=== PATIENT | female | born 1945 | race Caucasian/White ===

== ENCOUNTER → 2016-09-25 | Outpatient (CLI) | payer OTHER, BC ==
[~2016-09-25] MED LIST: ENABLEX15 MG PO; FLOVENT DI100 MCG/Ac IH; PROAIR HFA0.09 MG/Ac IH; PROPRANOLOL60 MG PO; SYN1 PO; TRIAMTERENE/H37.5 MG PO; VITAMIN D PO; [UNRECOGNIZED DRUG - OTHER] PO
== END | disposition home or self-care (01) ==
LOC: RD 13:55
DX: M79.644 Pain in right finger(s) (principal); R29.898 Other symptoms and signs involving the musculoskeletal system

== ENCOUNTER → 2016-10-31 | Outpatient (CLI) | payer OTHER, BC | END | disposition home or self-care (01) | LOC: CT 09:47 | PROC: BW24ZZZ Computerized Tomography (CT Scan) of Chest and Abdomen (ICD-10-PCS; principal; 2016-10-31) | PROC: BW211ZZ Computerized Tomography (CT Scan) of Abdomen and Pelvis using Low Osmolar Contrast (ICD-10-PCS; 2016-10-31) | DX: C64.9 Malignant neoplasm of unspecified kidney, except renal pelvis (principal); N31.8 Other neuromuscular dysfunction of bladder ==

== ENCOUNTER → 2017-08-26 | Outpatient (CLI) | payer OTHER, BC | END | disposition home or self-care (01) | LOC: RD 11:54 | DX: M25.551 Pain in right hip (principal) ==

== ENCOUNTER → 2017-09-09 | Outpatient (CLI) | payer OTHER, BC ==
[2017-09-09 14:36] LABS: UA SPECIFIC GRAVITY <=1.005 (1.005-1.035); urine erythrocyte NEGATIVE (NEGATIVE)
[2017-09-09 14:39] LABS: BASOPHIL % 0.4 % (0-2); PLATELET COUNT 176 x10^3mcL (130-400)
[2017-09-09 14:50] LABS: ALBUMIN 3.5 g/dL (3.4-5.0); BILIRUBIN TOTAL 0.65 mg/dL (0.20-1.00); CALCIUM 9.4 mg/dL (8.5-10.1); CARBON DIOXIDE 23.2 mmol/L (21-32); CREATININE SERUM 1.1 mg/dL (0.6-1.0); POTASSIUM SERUM 4.1 mmol/L (3.5-5.1); microscopic required? YES
[2017-09-09 14:51] LABS: RED CELL DISTRIBUTION WIDTH 14.7 % (11.5-14.5)
== END | disposition home or self-care (01) ==
LOC: LB 14:08
DX: C64.9 Malignant neoplasm of unspecified kidney, except renal pelvis (principal); N31.8 Other neuromuscular dysfunction of bladder

== ENCOUNTER → 2017-09-16 | Outpatient (CLI) | payer OTHER, BC | END | disposition home or self-care (01) | LOC: CT 08:37 | PROC: BW24ZZZ Computerized Tomography (CT Scan) of Chest and Abdomen (ICD-10-PCS; principal; 2017-09-16) | PROC: BW211ZZ Computerized Tomography (CT Scan) of Abdomen and Pelvis using Low Osmolar Contrast (ICD-10-PCS; 2017-09-16) | DX: C64.9 Malignant neoplasm of unspecified kidney, except renal pelvis (principal); N31.8 Other neuromuscular dysfunction of bladder | CPT/HCPCS: Q9967 ==

== ENCOUNTER → 2018-09-11 | Outpatient (CLI) | payer OTHER, BC ==
[2018-09-11 09:46] LABS: BASOPHIL % 0.5 % (0-2); PLATELET COUNT 158 x10^3mcL (130-400)
[2018-09-11 09:51] LABS: RED CELL DISTRIBUTION WIDTH 15.1 % (11.5-14.5)
[2018-09-11 10:07] LABS: ALBUMIN 3.5 g/dL (3.4-5.0); ALKALINE PHOSPHATASE 101 U/L (46-116); ALT/SGPT 21 U/L (14-59); AST/SGOT 11 U/L (15-37); BILIRUBIN TOTAL 0.52 mg/dL (0.20-1.00); CALCIUM 9.8 mg/dL (8.5-10.1); CARBON DIOXIDE 27.7 mmol/L (21-32); CHLORIDE SERUM 106 mmol/L (98-107); CREATININE SERUM 1.1 mg/dL (0.6-1.0); GLUCOSE SERUM 70 mg/dL (74-106); POTASSIUM SERUM 4.4 mmol/L (3.5-5.1); SODIUM SERUM 143 mmol/L (136-145)
== END | disposition home or self-care (01) ==
LOC: LB 09:20
DX: C64.9 Malignant neoplasm of unspecified kidney, except renal pelvis (principal); N31.8 Other neuromuscular dysfunction of bladder

== ENCOUNTER → 2018-09-15 | Outpatient (CLI) | payer OTHER, BC | END | disposition home or self-care (01) | LOC: CT 08:26 | PROC: BW251ZZ Computerized Tomography (CT Scan) of Chest, Abdomen and Pelvis using Low Osmolar Contrast (ICD-10-PCS; principal; 2018-09-15) | DX: C64.9 Malignant neoplasm of unspecified kidney, except renal pelvis (principal); N31.8 Other neuromuscular dysfunction of bladder | CPT/HCPCS: Q9967 ==

== ENCOUNTER → 2019-08-14 | Outpatient (CLI) | payer OTHER, BC ==
[2019-08-12 12:46] LABS: microscopic required? NO
[2019-08-12 12:57] LABS: BASOPHIL % 0.4 % (0-2); PLATELET COUNT 170 x10^3mcL (130-400)
[2019-08-12 13:06] LABS: RED CELL DISTRIBUTION WIDTH 15.5 % (11.5-14.5)
[2019-08-12 13:12] LABS: ALBUMIN 3.8 g/dL (3.4-5.0); ALKALINE PHOSPHATASE 84 U/L (46-116); ALT/SGPT 21 U/L (14-59); AST/SGOT 12 U/L (15-37); BILIRUBIN TOTAL 0.94 mg/dL (0.20-1.00); CALCIUM 9.6 mg/dL (8.5-10.1); CARBON DIOXIDE 28.9 mmol/L (21-32); CHLORIDE SERUM 102 mmol/L (98-107); CREATININE SERUM 1.1 mg/dL (0.6-1.0); GLUCOSE SERUM 94 mg/dL (74-106); POTASSIUM SERUM 3.9 mmol/L (3.5-5.1); SODIUM SERUM 138 mmol/L (136-145); TOTAL PROTEIN, SERUM 7.3 g/dL (6.4-8.2)
[2019-08-12 13:32] LABS: urine erythrocyte NEGATIVE (NEGATIVE)
== END | disposition home or self-care (01) ==
LOC: CT 08:32
PROC: BW24ZZZ Computerized Tomography (CT Scan) of Chest and Abdomen (ICD-10-PCS; principal; 2019-08-14)
PROC: BW211ZZ Computerized Tomography (CT Scan) of Abdomen and Pelvis using Low Osmolar Contrast (ICD-10-PCS; 2019-08-14)
DX: C64.9 Malignant neoplasm of unspecified kidney, except renal pelvis (principal); N31.8 Other neuromuscular dysfunction of bladder
CPT/HCPCS: Q9967